=== PATIENT | female | born 1940 | race Caucasian/White ===

== ENCOUNTER 2016-11-09 14:44 | Outpatient (CLI) | payer MEDICARE, OTHER ==
[2016-11-09 14:58] LABS: #Basophils 0.1 thou/uL (0.0-0.2); #Eosinphils 0.2 thou/uL (0.0-0.7); #Lymphocytes 2.4 thou/uL (1.20-3.40); #Monocytes 0.5 thou/uL (0.11-0.59); #Neutrophils 4.7 thou/uL (1.40-6.50); %Basophils 0.8 % (0.0-1.0); %Eosinophils 2.4 % (0.0-10.0); %Monocytes 5.9 % (0.0-10.0); Hematocrit 41.7 % (36.0-47.0); Mean Platelet Volume 6.3 fL (7.4-10.4); Red Blood Cell (RBC) Count 4.74 mill/uL (4.20-5.40); White Blood Cell (WBC) Count 7.8 thou/uL (4.8-10.8)
[2016-11-09 15:19] LABS: ALT (SGPT) 12 U/L (0-55); AST (SGOT) 12 U/L (5-34); Alkaline Phosphatase 116 U/L (40-150); Anion Gap 14 mmol/L (10-20); BUN (Urea Nitrogen) 13 mg/dL (9.8-20.1); Bilirubin, Total 0.6 mg/dL (0.2-1.2); Calc. Creatinine Clearance 0 mL/min (70-130); Carbon Dioxide 25 mmol/L (23-31); Chloride 106 mmol/L (98-107); Estimated GFR-MDRD 68; Globulin 3.4 g/dL (2.4-3.5); LDL Cholesterol, Calculated 106 mg/dL; Protein, Total 7.8 g/dL (5.8-8.1)
== END 2016-11-09 14:45 | disposition home or self-care (01) ==
LOC: BURLAB 14:44
PROVIDERS: ATTEND Family Medicine
DX: I10 Essential (primary) hypertension (principal); E78.5 Hyperlipidemia, unspecified
CPT/HCPCS: 36415; 80053; 80061; 85025

== ENCOUNTER 2018-02-23 03:54 | Emergency (ER) | payer MEDICARE, OTHER ==
[2018-02-23] MEDS ORDERED: Acetaminophen 500 MG TAB ONE (04:45)
[2018-02-23] MEDS ORDERED: Ondansetron HCl/PF 4 MG/2 ML Vial ONE (04:45)
[2018-02-23 04:55] LABS: #Basophils 0.1 thou/uL (0.0-0.2); #Eosinphils 0.1 thou/uL (0.0-0.7); #Lymphocytes 1.4 thou/uL (1.20-3.40); #Monocytes 0.6 thou/uL (0.11-0.59); #Neutrophils 7.4 thou/uL (1.40-6.50); %Basophils 0.8 % (0.0-1.0); %Eosinophils 1.1 % (0.0-10.0); %Lymphocytes 15.1 % (21.0-51.0); Hemoglobin 11.2 g/dL (12.0-16.0); Mean Corpuscular HGB CONC 34.6 g/dL (32.0-36.0); Mean Corpuscular Volume 80.9 fl (81.0-99.0); Mean Platelet Volume 6.5 fL (7.4-10.4); Platelet Count 229 thou/uL (130-400); RBC Distribution Width 11.6 % (11.5-14.5); Red Blood Cell (RBC) Count 4.01 mill/uL (4.20-5.40); White Blood Cell (WBC) Count 9.6 thou/uL (4.8-10.8)
[2018-02-23 05:01] LABS: Bilirubin Negative (Negative); Blood, Urine Negative (Negative); Clarity Clear (Clear); Glucose, Urine (Dipstick) Negative (Negative); Leukocyte Trace (Negative); Nitrite Negative (Negative); Protein, Urine (Dipstick) Negative (Neg-Trace)
[2018-02-23 05:05] LABS: ALT (SGPT) 15 U/L (8-55); AST (SGOT) 12 U/L (5-34); Albumin 3.7 g/dL (3.4-4.8); Alkaline Phosphatase 108 U/L (40-150); Anion Gap 15 mmol/L (10-20); BUN (Urea Nitrogen) 10 mg/dL (9.8-20.1); Bilirubin, Total 0.9 mg/dL (0.2-1.2); Calc. Creatinine Clearance 0 mL/min (70-130); Calcium 9.2 mg/dL (7.8-10.44); Carbon Dioxide 23 mmol/L (23-31); Chloride 105 mmol/L (98-107); Estimated GFR-MDRD 86; Globulin 3.4 g/dL (2.4-3.5); Glucose 120 mg/dL (83-110); Potassium 3.7 mmol/L (3.5-5.1); Protein, Total 7.1 g/dL (6.0-8.3); Sodium 139 mmol/L (136-145)
[2018-02-23 05:06] LABS: CKMB 0.5 ng/mL (0-6.6); Troponin I 0.011 ng/mL (< 0.028)
[2018-02-23 05:10] LABS: Bacteria/HPF Rare-Few HPF (None Seen); RBC/HPF None Seen HPF (0-3); Squamous Epithelial 0-3 HPF (0-3); WBC/HPF 0-3 HPF (0-3)
[2018-02-23] MEDS ORDERED: Furosemide 40 MG/4 ML VIAL ONE (05:48)
[2018-02-23] MEDS ORDERED: Lisinopril 20 MG TAB ONE (08:09)
[2018-02-23] MEDS ORDERED: Carvedilol 3.125 MG TAB PO SCH (08:15)
--- NOTE | 2018-02-23 11:38 | RAD ---
PORTABLE CHEST: Date: 02/23/18 An AP portable film at 0431 hours is compared with the 02/20/18 study. FINDINGS: The lungs are hyperexpanded, as usual. The lung bases are partially obscured by the overlying soft ti ssues. Nevertheless, there is some suspicion that there might be a little bit of basilar streaking, p articularly in the right base medially. An upright PA and lateral chest view would be useful. The api martha and upper lobes are clear. Heart size is normal. Calcification is seen in the aortic arch. IMPRESSION: Equivocal increased streaking in the lung bases. Follow-up PA and lateral views would be helpful. POS: HOME
== END 2018-02-23 08:58 | disposition short-term general hospital (02) ==
LOC: BURERS 03:54
DX: I11.0 Hypertensive heart disease with heart failure (principal); I50.9 Heart failure, unspecified; Z79.899 Other long term (current) drug therapy
CPT/HCPCS: 36415; 71045; 80053; 81003; 81015; 82553; 83605; 83880; 84484; 85025; 87040; 87086; 87804; 94640; 94760; 96365; 96366; 96367; 96375; J1940; J1956; J2405; J7620

== ENCOUNTER 2018-07-23 06:47 | Emergency (ER) | payer MEDICARE, OTHER ==
[2018-07-23] MEDS ORDERED: Ondansetron HCl/PF 4 MG/2 ML Vial ONE (07:00)
[2018-07-23] MEDS ORDERED: Pantoprazole 40 MG VIAL ONE (07:03)
[2018-07-23] MEDS ORDERED: Nitroglycerin 0.4 MG TAB (25 Tab Bottle) ONE (07:03)
[2018-07-23 07:07] LABS: #Basophils 0.1 thou/uL (0.0-0.2); #Eosinphils 0.2 thou/uL (0.0-0.7); #Lymphocytes 1.4 thou/uL (1.20-3.40); #Monocytes 0.6 thou/uL (0.11-0.59); #Neutrophils 6.4 thou/uL (1.40-6.50); %Basophils 1.2 % (0.0-1.0); %Eosinophils 1.9 % (0.0-10.0); %Lymphocytes 15.7 % (21.0-51.0); %Monocytes 6.5 % (0.0-10.0); %Neutrophils 74.6 % (42.0-75.0); Hemoglobin 12.4 g/dL (12.0-16.0); Mean Corpuscular HGB CONC 33.8 g/dL (32.0-36.0); Mean Corpuscular Hemoglobin 28.5 pg (27.0-31.0); Mean Corpuscular Volume 84.4 fL (78.0-98.0); Mean Platelet Volume 7.4 fL (7.4-10.4); Platelet Count 282 thou/uL (130-400); RBC Distribution Width 12.6 % (11.5-14.5); Red Blood Cell (RBC) Count 4.36 mill/uL (4.20-5.40); White Blood Cell (WBC) Count 8.6 thou/uL (4.8-10.8)
[2018-07-23 07:24] LABS: ALT (SGPT) 10 U/L (8-55); AST (SGOT) 9 U/L (5-34); Albumin 4.1 g/dL (3.4-4.8); Alkaline Phosphatase 106 U/L (40-150); Anion Gap 14 mmol/L (10-20); BUN (Urea Nitrogen) 11 mg/dL (9.8-20.1); Bilirubin, Total 0.5 mg/dL (0.2-1.2); Calc. Creatinine Clearance 0 mL/min (70-130); Calcium 9.2 mg/dL (7.8-10.44); Carbon Dioxide 23 mmol/L (23-31); Chloride 105 mmol/L (98-107); Estimated GFR-MDRD 69; Globulin 3.1 g/dL (2.4-3.5); Glucose 133 mg/dL (83-110); Lipase 33 U/L (8-78); Potassium 3.8 mmol/L (3.5-5.1); Protein, Total 7.2 g/dL (6.0-8.3); Sodium 138 mmol/L (136-145)
[2018-07-23 07:25] LABS: Troponin I Less than 0.010 ng/mL (< 0.028)
--- NOTE | 2018-07-23 19:35 | RAD ---
PORTABLE CHEST 07/23/18 An AP portable film at 0649 is compared with a 02/23/18 study. There is still slight increase in lung markings in the left base. It is probably no worse than the pr ior exam. No new infiltrates are seen. The upper lobes are clear. The heart size is normal. Effusions are not seen. IMPRESSION: Very slight increase in left basilar markings but similar to before. No evidence of congestive change . POS: HOME
== END 2018-07-23 08:15 | disposition short-term general hospital (02) ==
LOC: BURERS 06:47
DX: R07.89 Other chest pain (principal); I11.0 Hypertensive heart disease with heart failure; I50.9 Heart failure, unspecified; Z79.899 Other long term (current) drug therapy
CPT/HCPCS: 71045; 80053; 82553; 83690; 83880; 84484; 85025; 85379; 93005; 96374; 96375; C9113; J2405

== ENCOUNTER 2020-11-19 04:40 | Emergency (ER) | payer MEDICARE, OTHER ==
[2020-11-19] MEDS ORDERED: Ondansetron PF 4 MG/2 ML Vial ONE ×3 (05:02→06:39)
[2020-11-19] MEDS ORDERED: Fentanyl 100 MCG/2 ML VIAL ONE ×2 (05:02→06:38)
[2020-11-19 05:22] LABS: #Basophils 0.1 thou/uL (0.0-0.2); #Eosinphils 0.1 thou/uL (0.0-0.7); #Lymphocytes 1.7 thou/uL (1.20-3.40); #Monocytes 0.5 thou/uL (0.11-0.59); #Neutrophils 8.2 thou/uL (1.40-6.50); %Basophils 0.7 % (0.0-1.0); %Eosinophils 1.1 % (0.0-10.0); %Lymphocytes 16.4 % (21.0-51.0); %Monocytes 4.4 % (0.0-10.0); %Neutrophils 77.3 % (42.0-75.0); Hemoglobin 13.3 g/dL (12.0-16.0); Mean Corpuscular HGB CONC 33.3 g/dL (32.0-36.0); Mean Corpuscular Hemoglobin 29.6 pg (27.0-31.0); Mean Corpuscular Volume 88.9 fL (78.0-98.0); Mean Platelet Volume 7.2 fL (7.4-10.4); Platelet Count 262 thou/uL (130-400); RBC Distribution Width 12.2 % (11.5-14.5); Red Blood Cell (RBC) Count 4.48 mill/uL (4.20-5.40); White Blood Cell (WBC) Count 10.5 thou/uL (4.8-10.8)
[2020-11-19 05:29] LABS: ALT (SGPT) 19 U/L (8-55); AST (SGOT) 12 U/L (5-34); Albumin 4.3 g/dL (3.4-4.8); Alkaline Phosphatase 83 U/L (40-110); Anion Gap 15 mmol/L (10-20); BUN (Urea Nitrogen) 23 mg/dL (9.8-20.1); Bilirubin, Total 0.4 mg/dL (0.2-1.2); Calc. Creatinine Clearance 0 mL/min (70-130); Calcium 9.2 mg/dL (7.8-10.44); Carbon Dioxide 24 mmol/L (23-31); Chloride 101 mmol/L (98-107); Globulin 3.2 g/dL (2.4-3.5); Glucose 146 mg/dL (83-110); Lipase 44 U/L (8-78); Potassium 4.2 mmol/L (3.5-5.1); Protein, Total 7.5 g/dL (6.0-8.3); Sodium 136 mmol/L (136-145)
[2020-11-19 05:45] LABS: Bilirubin Negative (Negative); Blood, Urine Negative (Negative); Clarity Clear (Clear); Glucose, Urine (Dipstick) Negative (Negative); Ketone, Urine Negative (Negative); Leukocyte Negative (Negative); Nitrite Negative (Negative); Protein, Urine (Dipstick) Negative (Neg-Trace); Specific Gravity, Urine 1.025 (1.005-1.030); Urobilinogen 0.2 mg/dL (Less than 2); pH, Urine 5.5 (5.0-9.0)
[2020-11-19] MEDS ORDERED: Dicyclomine 20 MG TAB ONE (06:33)
[2020-11-19] MEDS ORDERED: Famotidine In NaCl 20 mg/50 ml Premix Bag ONE ×2 (06:38→06:39)
[2020-11-19] MEDS ORDERED: Glycopyrrolate 0.4 MG/ 2 ML VIAL ONE (07:47)
--- NOTE | 2020-11-19 10:01 | CT ---
PRELIMINARY REPORT/DIRECT RADIOLOGY/EMERGENCY AFTER HOURS PROCEDURE: EXAM: CT Abdomen and Pelvis with Intravenous Contrast CLINICAL HISTORY: PT REPORTING DIFFUSE ABDOMINAL PAIN BEGINNING AT 2100 AND INCREASING AT 0300 TONIGH T. PT DENIES CHANGES TO BM. PT REPORTING NORMAL DIET. PT DENIES INCREASE OF PAIN ON PALPATION TECHNIQUE: Axial computed tomography images of the abdomen and pelvis with intravenous contrast. CONTRAST: With; ISO 370 COMPARISON: None provided. FINDINGS: LUNG BASES: No basilar airspace consolidation or pleural effusion. LIVER: Unremarkable. Likely some small hepatic cysts. GALLBLADDER AND BILE DUCTS: Unremarkable. No calcified stone. No ductal dilation. PANCREAS: Unremarkable. SPLEEN: Unremarkable. ADRENAL GLANDS: Unremarkable. KIDNEYS, URETERS, AND BLADDER: Unremarkable. No hydronephrosis or nephrolithiasis. No ureteral or rox dder calculi. STOMACH AND BOWEL: No obstruction. No wall thickening. No CT evidence of colitis or acute diverticuli tis. Fairly extensive diverticulosis of the descending colon and sigmoid. APPENDIX: Normal appendix. PERITONEUM: No free fluid. No free air. LYMPH NODES: No lymphadenopathy. REPRODUCTIVE: Unremarkable as visualized. Sterilization clips noted. VASCULATURE: No aortic aneurysm. BONES: No fracture or suspicious osseous abnormality. Degenerative changes in the spine. ABDOMINAL WALL AND SOFT TISSUES: Unremarkable. IMPRESSION: No acute intra-abdominal or pelvic abnormality. ELECTRONICALLY SIGNED BY: Vel Pritchett MD Nov 19, 2020 6:17:50 AM [employer] FINAL REPORT CT ABDOMEN AND PELVIS WITH CONTRAST: DATE: 11/19/2020. COMPARISON: Comparison is made with a 07/19/2013 study, as well as a 2018 CT of the chest that included some of th e lower lungs and upper abdomen. FINDINGS: The lung bases are clear, except for on the top slice there is an opacity in the tip of the lingula. This was present on a 2018 study and has not changed significantly. On the prior study, it was ment ioned that some left breast nodules were seen. This study does not go as high as the prior one, and none are seen today. The liver has 2 small cysts in the left lobe, one measuring 1.8 cm and the other measuring 1.1 cm. T hey were present in 2018 and have not changed substantially. The spleen, pancreas, gallbladder, adre nal glands, kidneys, and abdominal aorta showed no acute findings. There is probably a small cyst in the upper pole of the right kidney. There is no distention of bowel, inflammatory change around bowel, or wall thickening. The appendix appears normal. Diverticulosis is noted in the left colon and sigmoid colon without convincing findi ngs of diverticulitis. A minimal amount of streaking around the descending colon at the level of the left kidney can be seen on old studies. CT of the pelvis shows no pelvic masses, fluid collections, or inflammatory changes. Degenerative ch anges are present in the spine. IMPRESSION: 1. No acute abdominal or pelvic findings to explain the patient's pain. 2. Diverticulosis without findings of diverticulitis. POS: HOME
== END 2020-11-19 18:16 | disposition home or self-care (01) ==
LOC: BURERS 04:40
DX: K80.50 Calculus of bile duct without cholangitis or cholecystitis without obstruction (principal); R11.2 Nausea with vomiting, unspecified; I11.0 Hypertensive heart disease with heart failure; I50.9 Heart failure, unspecified; Z79.899 Other long term (current) drug therapy
CPT/HCPCS: 74177; 80053; 81003; 83690; 84484; 85025; 93005; 96365; 96375; 96376; J2405; J3010

== ENCOUNTER 2020-12-26 15:56 | Outpatient (CLI) | payer MEDICARE, OTHER ==
[2020-12-26 21:30] LABS: #Basophils 0.1 thou/uL (0.0-0.2); #Eosinphils 0.2 thou/uL (0.0-0.7); #Lymphocytes 2.3 thou/uL (1.20-3.40); #Monocytes 0.5 thou/uL (0.11-0.59); #Neutrophils 4.5 thou/uL (1.40-6.50); %Basophils 0.9 % (0.0-1.0); %Eosinophils 2.8 % (0.0-10.0); %Lymphocytes 30.6 % (21.0-51.0); %Monocytes 6.8 % (0.0-10.0); Hemoglobin 12.3 g/dL (12.0-16.0); Mean Corpuscular HGB CONC 32.7 g/dL (32.0-36.0); Mean Corpuscular Hemoglobin 30.2 pg (27.0-31.0); Mean Corpuscular Volume 92.2 fL (78.0-98.0); Mean Platelet Volume 7.7 fL (7.4-10.4); Platelet Count 266 thou/uL (130-400); RBC Distribution Width 12.1 % (11.5-14.5); Red Blood Cell (RBC) Count 4.07 mill/uL (4.20-5.40); White Blood Cell (WBC) Count 7.6 thou/uL (4.8-10.8)
[2020-12-26 21:39] LABS: Hemoglobin A1c 5.5 % (4.0-6.0)
[2020-12-26 21:44] LABS: ALT (SGPT) 12 U/L (8-55); AST (SGOT) 12 U/L (5-34); Albumin 4.1 g/dL (3.4-4.8); Alkaline Phosphatase 86 U/L (40-110); Anion Gap 13 mmol/L (10-20); BUN (Urea Nitrogen) 19 mg/dL (9.8-20.1); Bilirubin, Total 0.4 mg/dL (0.2-1.2); Calc. Creatinine Clearance 0 mL/min (70-130); Carbon Dioxide 26 mmol/L (23-31); Cardiac Risk 4.2 (Less than 4.5); Chloride 105 mmol/L (98-107); Cholesterol 208 mg/dl (< 200 Desired); Globulin 2.9 g/dL (2.4-3.5); Glucose 97 mg/dL (83-110); HDL Cholesterol 50 mg/dL (>60 Neg Risk); LDL Cholesterol, Calculated 129 mg/dL; Potassium 4.7 mmol/L (3.5-5.1); Sodium 139 mmol/L (136-145); Triglycerides 146 mg/dL (Less than 150)
[2020-12-26 22:01] LABS: Free T4 (Free Thyroxine) 0.94 ng/dL (0.70-1.48)
[2020-12-26 22:59] LABS: Vitamin D, 25 Hydroxy 22.3 ng/ml (> 30.0)
[2020-12-27 09:37] LABS: Thyroid Stimulating Hormone 0.3051 uIU/mL (0.35-4.94)
== END 2020-12-26 15:57 | disposition home or self-care (01) ==
LOC: HPCALD 15:56
PROVIDERS: ATTEND Family Medicine
DX: E78.5 Hyperlipidemia, unspecified (principal); I10 Essential (primary) hypertension; E55.9 Vitamin D deficiency, unspecified; R73.01 Impaired fasting glucose; R79.89 Other specified abnormal findings of blood chemistry
CPT/HCPCS: 36415; 80053; 80061; 82306; 83036; 84439; 84443; 85025

== ENCOUNTER 2022-11-26 10:18 | Emergency (ER) | payer MEDICARE, OTHER ==
[2022-11-26] MEDS ORDERED: Iopamidol 370 76% 100 ML VIAL ONE (10:49)
[2022-11-26] MEDS ORDERED: Dexamethasone 4 MG TAB ONE (11:13)
[2022-11-26] MEDS ORDERED: Ibuprofen 200 MG TAB ONE (11:13)
[2022-11-26 11:35] LABS: #Basophils 0.1 thou/uL (0.0-0.2); #Eosinphils 0.3 thou/uL (0.0-0.7); #Lymphocytes 1.8 thou/uL (1.20-3.40); #Monocytes 0.6 thou/uL (0.11-0.59); #Neutrophils 3.7 thou/uL (1.40-6.50); %Basophils 0.8 % (0.0-1.0); %Eosinophils 4.1 % (0.0-10.0); %Lymphocytes 28.3 % (21.0-51.0); %Monocytes 9.1 % (0.0-10.0); %Neutrophils 57.6 % (42.0-75.0); Hemoglobin 12.1 g/dL (12.0-16.0); Mean Corpuscular HGB CONC 33.6 g/dL (32.0-36.0); Mean Corpuscular Hemoglobin 29.7 pg (27.0-31.0); Mean Corpuscular Volume 88.4 fl (78.0-98.0); Mean Platelet Volume 7.4 fL (7.4-10.4); Platelet Count 241 10x3/uL (130-400); RBC Distribution Width 12.1 % (11.5-14.5); Red Blood Cell (RBC) Count 4.09 mill/uL (4.20-5.40); White Blood Cell (WBC) Count 6.4 10x3/uL (4.8-10.8)
[2022-11-26 11:53] LABS: ALT (SGPT) 18 U/L (8-55); AST (SGOT) 17 U/L (5-34); Albumin 4.1 g/dL (3.4-4.8); Alkaline Phosphatase 102 U/L (40-110); Anion Gap 14 mmol/L (10-20); BUN (Urea Nitrogen) 27 mg/dL (9.8-20.1); Bilirubin, Total 0.3 mg/dL (0.2-1.2); Calc. Creatinine Clearance 0 mL/min (70-130); Calcium 9.1 mg/dL (7.8-10.44); Carbon Dioxide 22 mmol/L (23-31); Chloride 108 mmol/L (98-107); Estimated GFR 47; Globulin 3.1 g/dL (2.4-3.5); Glucose 113 mg/dL (83-110); Potassium 4.7 mmol/L (3.5-5.1); Protein, Total 7.2 g/dL (5.8-8.1); Sodium 139 mmol/L (136-145)
== END 2022-11-26 13:43 | disposition home or self-care (01) ==
LOC: BURERS 10:18
DX: U07.1 COVID-19 (principal); I11.0 Hypertensive heart disease with heart failure; I50.9 Heart failure, unspecified; Z79.899 Other long term (current) drug therapy
CPT/HCPCS: 71046; 71275; 80053; 85025; 85379; 87804 ×2; 99284; U0003; U0005; J8540; Q9967